=== PATIENT | female | born 1970 | race Caucasian/White ===

== ENCOUNTER → 2016-09-24 | Outpatient (CLI) | payer OTHER | END | disposition home or self-care (01) | LOC: RAD.S 08:55 | DX: N23 Unspecified renal colic (principal); N20.0 Calculus of kidney ==

== ENCOUNTER → 2016-09-28 | Outpatient (CLI) | payer OTHER | END | disposition home or self-care (01) | LOC: RAD.S 09-27 10:00 | DX: D25.9 Leiomyoma of uterus, unspecified (principal); N85.8 Other specified noninflammatory disorders of uterus ==

== ENCOUNTER 2016-10-02 21:37 | Emergency (ER) | payer OTHER ==
--- NOTE | 2016-10-03 06:47 | ER ---
ADMIT: 10/02/2016 RM/LOC: ER [facility] MR#: [id number] [address] 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 Recent ultrasound confirmed uterine mass, possible ovarian. Exam remarkable for nontoxic, afebrile female. CT confirms 5 x 7 cm left adnexal mass, no ureteral obstruction. UA, CBC, CMP negative. HCG negative. Given a liter of fluid, Zofran, Toradol, Dilaudid with improvement. Home with hydrocodone 5/325 mg as needed. Follow up with Dr. Marilee Short on Tuesday as scheduled. Xander Mclaughlin MD/ mitchell JOB #: [id number] CC: Xander Mclaughlin MD, Attending Physician Jason Lagunas MD, Family Physician Marilee Short MD . [facility]
== END 2016-10-03 00:09 | disposition home or self-care (01) ==
LOC: ER 21:37
DX: R19.00 Intra-abdominal and pelvic swelling, mass and lump, unspecified site (principal); E11.9 Type 2 diabetes mellitus without complications; Z87.442 Personal history of urinary calculi; Z79.82 Long term (current) use of aspirin; Z79.899 Other long term (current) drug therapy

== ENCOUNTER → 2016-10-14 | Outpatient (CLI) | payer OTHER | END | disposition home or self-care (01) | LOC: RAD.S 10:15 | DX: Z01.818 Encounter for other preprocedural examination (principal) ==

== ENCOUNTER → 2016-12-27 | Outpatient (CLI) | payer OTHER | END | disposition home or self-care (01) | LOC: RAD.S 12-24 11:00 | DX: R19.00 Intra-abdominal and pelvic swelling, mass and lump, unspecified site (principal) ==

== ENCOUNTER 2017-01-04 04:29 | Emergency (ER) | payer OTHER ==
--- NOTE | 2017-01-07 19:05 | ER ---
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 Denies any fevers or chills. Exam remarkable for nontoxic, afebrile female with minimal pharyngitis, no midline shift, minimal cervical lymphadenopathy. Strep screen negative. Culture pending. Discharged with Zithromax 500 mg load 250 mg daily x4 days. Push fluids. Tylenol and Motrin. Follow up [facility] or Dr. Monae as needed. Xander Mclaughlin MD/ [facility]chell JOB #: [id number] CC: Xander Mclaughlin MD, Attending Physician . [facility] Vivian Monae MD
== END 2017-01-04 05:36 | disposition home or self-care (01) ==
LOC: ER 04:29
DX: R07.0 Pain in throat (principal); R22.1 Localized swelling, mass and lump, neck; E11.9 Type 2 diabetes mellitus without complications; Z79.84 Long term (current) use of oral hypoglycemic drugs; Z88.6 Allergy status to analgesic agent; Z90.89 Acquired absence of other organs